=== PATIENT | male | born 1930 | race Caucasian/White ===

== ENCOUNTER 2017-05-13 07:47 | Day surgery (SDC) | payer OTHER, BC ==
[2017-05-12 13:43] VITALS: BMI 30.5
[2017-05-13 09:40] VITALS: TEMP 97.5
[2017-05-13 13:48] VITALS: BP 122/60; PULSE 70
--- NOTE | 2017-05-14 10:36 | PATH ---
Surgical Pathology Report Patient Name: CAROLYNE CHÁVEZ [facility]. Rec. #: [id number] /Age/Gender: 1930 (Age: 86) / M Account: [id number] Location: U-ENDOSCOPY Taken: 05/13/2017 Received: 05/13/2017 Reported: 05/14/2017 Physicians: Navid Coronel M.D. 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 Electronically Signed Evi Graham M.D. Gross Description Received in formalin labeled "sigmoid polyp," is a 2.4 x 1.9 x 1.2 cm [place], polypoid portion of soft tissue. Also received within the same container is a 2.5 x 2.0 x 0.4 cm aggregate of [place] soft tissue fragments. The base of the polyp is inked green and the specimen is serially sectioned. The specimen is entirely submitted in 5 cassettes as follows: 3-5-qbvzvhch sectioned polyp; 5-separately received soft tissue fragments. DL/05/13/2017 saudi05/13/2017
== END 2017-05-13 10:50 | disposition home or self-care (01) ==
LOC: JASU-ENDO 07:47
PROVIDERS: ATTEND Internal Medicine Gastroenterology
PROC: 0DBN8ZX Excision of Sigmoid Colon, Via Natural or Artificial Opening Endoscopic, Diagnostic (ICD-10-PCS; principal; 2017-05-13 10:00)
DX: Z12.11 Encounter for screening for malignant neoplasm of colon (principal); Z86.010 Personal history of colon polyps; D12.5 Benign neoplasm of sigmoid colon; K57.30 Diverticulosis of large intestine without perforation or abscess without bleeding; K63.89 Other specified diseases of intestine
CPT/HCPCS: 88305-TC

== ENCOUNTER 2020-11-23 04:40 | Day surgery (SDC) | payer OTHER, BC ==
[2020-11-21 12:37] VITALS: BMI 28.6
[2020-11-23] MEDS ORDERED: ETOMIDATE 20 MG/10 ML AMPUL IVPUSH ONE (08:20)
[2020-11-23 09:51] VITALS: TEMP 97.7
[2020-11-23 10:15] VITALS: BP 156/72; PULSE 54
== END 2020-11-23 12:30 | disposition home or self-care (01) ==
LOC: JASU-ENDO 04:40
PROVIDERS: ATTEND Internal Medicine Gastroenterology
PROC: 3E0H8KZ Introduction of Other Diagnostic Substance into Lower GI, Via Natural or Artificial Opening Endoscopic (ICD-10-PCS; 2020-11-23)
PROC: 0DB38ZX Excision of Lower Esophagus, Via Natural or Artificial Opening Endoscopic, Diagnostic (ICD-10-PCS; 2020-11-23)
PROC: 0DB78ZX Excision of Stomach, Pylorus, Via Natural or Artificial Opening Endoscopic, Diagnostic (ICD-10-PCS; 2020-11-23)
PROC: 0DBN8ZX Excision of Sigmoid Colon, Via Natural or Artificial Opening Endoscopic, Diagnostic (ICD-10-PCS; principal; 2020-11-23 08:45)
DX: Z12.11 Encounter for screening for malignant neoplasm of colon (principal); D12.5 Benign neoplasm of sigmoid colon; K21.00 Gastro-esophageal reflux disease with esophagitis, without bleeding; K29.50 Unspecified chronic gastritis without bleeding; Z86.010 Personal history of colon polyps; R10.13 Epigastric pain
CPT/HCPCS: 88305-TC; 88342-TC